=== PATIENT | female | born 1950 | race Caucasian/White ===

== ENCOUNTER 2018-07-02 08:29 | Emergency (ER) | END 2018-07-02 11:05 | disposition home or self-care (01) ==

== ENCOUNTER 2019-01-12 18:07 | Emergency (ER) | payer OTHER ==
[~2019-01-12] VITALS: Ht 157.5 cm; Wt 69.9 kg
[~2019-01-12 18:07] MED LIST: DOCU-144 PO; NITR-58 PO; POLY17PO6 PO
[2019-01-12 18:23] VITALS: Ht 157.5 cm; Wt 69.9 kg
[2019-01-12] MEDS ORDERED: LIDOCAINE/MYLANTA 40 ML BTL PO STA (20:16)
[2019-01-12] MEDS ORDERED: FAMOTIDINE 20 MG INJ IV STA (20:16)
[2019-01-12] MEDS ORDERED: DICYCLOMINE 10 MG CAP PO ONE (20:30)
[2019-01-12] MEDS ORDERED: FAMO-96 PO (21:05)
--- NOTE | 2019-01-12 21:25 | ERD ---
ER Documentation Chief Complaint Chief Complaint PT REPORTS LLQ PAIN RADIATING TO BACK WITH FREQUENT URINATION HPI 68-year-old female who presents to the emergency room complaining of epigastric abdominal pain. She describes several weeks if not longer of epigastric abdominal discomfort. Patient states that is always postprandial usually with fried or fatty foods. The patient also describes approximately 1 week of dysuria and possible frequent urination. No fevers or chills, no left flank pain, right flank pain. She denies any cough or shortness of breath. Symptoms are moderate currently. ROS All systems reviewed and are negative except as per history of present illness. Medications Home Meds Active Scripts Famotidine* (Pepcid*) 20 Mg Tablet, 20 MG PO BID for 4 Days, TAB Prov:KOTA SOTELO MD 01/12/19 Polyethylene Glycol* (Miralax*) 17 Gm Powd.pack, 17 GM PO DAILY, #7 Prov:TED ESPARZA MD 07/02/18 Docusate Sodium* (Colace*) 100 Mg Capsule, 100 MG PO BID, #60 CAP Prov:TED ESPARZA MD 07/02/18 Nitrofurantoin Monohyd Macrocr* (Macrobid*) 100 Mg Capsr, 100 MG PO BID for 7 Days, CAP Prov:FAYE CASTAÑEDA PA-C 03/14/16 Allergies Allergies: Coded Allergies: No Known Allergies (Verified Allergy, Unknown, 07/02/18) PMhx/Soc History of Surgery: Yes (HYSTERECTOMY ) Anesthesia Reaction: No Hx Neurological Disorder: No Hx Respiratory Disorders: No Hx Cardiac Disorders: No Hx Psychiatric Problems: Yes (DEPRESSION ) Hx Miscellaneous Medical Probl: No Hx Alcohol Use: No Hx Substance Use: No Hx Tobacco Use: No Smoking Status: Never smoker FmHx Family History: No diabetes Physical Exam Vitals Vital Signs Date Temp Pulse Resp B/P (MAP) Pulse Ox O2 O2 Flow FiO2 Time Delivery Rate 01/12/19 64 17 155/85 97 Room Air 21:03 (108) 01/12/19 98.6 84 16 155/74 100 18:23 (101) Physical Exam General: Well developed, well nourished, no acute distress Head: Normocephalic, atraumatic. Eyes: Pupils equally reactive, EOM intact ENT: Moist mucous membranes Neck: Supple, no lymphadenopathy Respiratory: Lungs clear bilaterally, no distress Cardiovascular: RRR, no murmurs, rubs, or gallops Abdominal: Soft, non-tender, non-distended, no peritoneal signs, negative Anderson sign Back: No CVAT bilaterally : Deferred MSK: No edema, no unilateral swelling, 5/5 strength Neurologic: Alert and oriented, moving all extremities, normal speech, no focal weakness, no cerebellar signs Skin: No rash Psych: Normal mood Result Diagram: 01/12/19201401/12/192014 Results 24 hrs Laboratory Tests Test 01/12/19 20:15 01/12/19 20:24 White Blood Count 10.3 10^3/ul Red Blood Count 4.58 10^6/ul Hemoglobin 13.0 g/dl Hematocrit 39.3 % Mean Corpuscular Volume 85.8 fl Mean Corpuscular Hemoglobin 28.4 pg Mean Corpuscular Hemoglobin Concent 33.1 g/dl Red Cell Distribution Width 12.4 % Platelet Count 309 10^3/UL Mean Platelet Volume 9.9 fl Immature Granulocytes % 0.300 % Neutrophils % 56.9 % Lymphocytes % 33.7 % Monocytes % 5.9 % Eosinophils % 2.7 % Basophils % 0.5 % Nucleated Red Blood Cells % 0.0 /100WBC Immature Granulocytes # 0.030 10^3/ul Neutrophils # 5.9 10^3/ul Lymphocytes # 3.5 10^3/ul Monocytes # 0.6 10^3/ul Eosinophils # 0.3 10^3/ul Basophils # 0.1 10^3/ul Nucleated Red Blood Cells # 0.0 10^3/ul Urine Color YELLOW Urine Clarity SLIGHTLY CLOUDY Urine pH 5.0 Urine Specific [place] 1.010 Urine Ketones NEGATIVE mg/dL Urine Nitrite NEGATIVE mg/dL Urine Bilirubin NEGATIVE mg/dL Urine Urobilinogen NEGATIVE mg/dL Urine Leukocyte Esterase 1+ Kaiden/ul Urine Microscopic RBC 0 /HPF Urine Microscopic WBC 2 /HPF Urine Mucus FEW /HPF Urine Hemoglobin NEGATIVE mg/dL Urine Glucose NEGATIVE mg/dL Urine Total Protein NEGATIVE mg/dl Sodium Level 139 mmol/L Potassium Level 3.9 mmol/L Chloride Level 106 mmol/L Carbon Dioxide Level 25 mmol/L Anion Gap 8 Blood Urea Nitrogen 14 mg/dl Creatinine 0.61 mg/dl Est Glomerular Filtrat Rate mL/min > 60 mL/min Glucose Level 93 mg/dl Calcium Level 9.6 mg/dl Total Bilirubin 0.4 mg/dl Direct Bilirubin 0.00 mg/dl Indirect Bilirubin 0.4 mg/dl Aspartate Amino Transf (AST/SGOT) 36 IU/L Alanine Aminotransferase (ALT/SGPT) 25 IU/L Alkaline Phosphatase 85 IU/L Troponin I < 0.012 ng/ml Total Protein 8.2 g/dl Albumin 4.4 g/dl Globulin 3.80 g/dl Albumin/Globulin Ratio 1.15 Lipase 121 U/L Bedside Urine pH (LAB) 5.5 Bedside Urine Protein (LAB) Negative Bedside Urine Glucose (UA) Negative Bedside Urine Ketones (LAB) Negative Bedside Urine Blood Trace-lysed Bedside Urine Nitrite (LAB) Negative Bedside Urine Leukocyte Esterase (L 1+ Current Medications Medications Dose Sig/Sarah Start Time Status Last (Trade) Ordered Route PRN Stop Time Admin Dose Reason Admin Famotidine 20 mg ONCE STAT 01/12/19 DC 01/12/19 (Pepcid Iv) IV 20:16 20:20 01/12/19 20:17 40 ml ONCE STAT 01/12/19 DC 01/12/19 Miscellaneous PO 20:16 20:21 Medication 01/12/19 20:17 (Gi Cocktail (2)) Dicyclomine 10 mg ONCE ONCE 01/12/19 DC 01/12/19 HCl PO 20:30 20:20 (Bentyl) 01/12/19 20:31 Procedures/MDM EKG, MONITORS, & DIAGNOSTIC IMAGING: EKG: I reviewed and interpreted a 12-lead EKG. Rhythm: Normal sinus rhythm ST Changes: No contiguous ST segment elevations T waves: No contiguous T wave inversions Impression: No evidence of acute cardiac ischemia LAB INTERPRETATION: I reviewed the laboratory testing and it shows no evidence of acute process MEDICAL DECISION MAKING: Patient presents with a multitude of complaints of her subacute timeframe. Her epigastric abdominal discomfort seems to be consistent with likely dyspepsia versus peptic ulcer disease versus GERD. Low concern for acute cholecystitis, cholelithiasis or biliary colic. No indication for ultrasound or CT imaging at this time given benign abdominal examination. Unclear etiology of the patient's dysuria. The patient could have potentially have a UTI. No signs of pyelonephritis. Symptoms are again subacute. Patient has epigastric discomfort, no exertional symptoms, very low clinical concern for cardiac et iology though EKG and troponin would be appropriate. ER COURSE: * Patient given a GI cocktail with dramatic improvement of symptomatology. Laboratory testing and diagnostic imaging is unrevealing. * Urinalysis not consistent with UTI. Urine culture is been sent. No indication at this time for empiric antibiotics given the risks outweigh the benefits. * Patient can be safely discharged and was advised to follow-up with gastroenterology for endoscopy. CONSULTATION: None DISPOSITION PLAN: The patient does not have an identifiable emergent medical condition that warrants inpatient hospitalization at this time. The patient is deemed safe for discharge with outpatient follow-up. We discussed follow up with the patient's primary care doctor within 24 to 48 hours as needed. We also discussed return to the emergency room for worsening symptoms or worsening condition. Outpatient referral: Gastroenterology Discharge Medications: Pepcid Departure Diagnosis: Primary Impression: Epigastric abdominal pain Additional Impressions: Dyspepsia Dysuria Condition: Stable Patient Instructions: Epigastric Pain (Uncertain Cause) Referrals: KENY ARGUELLO MD [facility] YOU HAVE RECEIVED A MEDICAL SCREENING EXAM AND THE RESULTS INDICATE THAT YOU DO NOT HAVE A CONDITION THAT REQUIRES URGENT TREATMENT IN THE EMERGENCY DEPARTMENT. FURTHER EVALUATION AND TREATMENT OF YOUR CONDITION CAN WAIT UNTIL YOU ARE SEEN IN YOUR DOCTORS OFFICE WITHIN THE NEXT 1-2 DAYS. IT IS YOUR RESPONSIBILITY TO MAKE AN APPOINTMENT FOR FOLOW-UP CARE. IF YOU HAVE A PRIMARY DOCTOR --you should call your primary doctor and schedule an appointment IF YOU DO NOT HAVE A PRIMARY DOCTOR YOU CAN CALL OUR PHYSICIAN REFERRAL HOTLINE AT IF YOU CAN NOT AFFORD TO SEE A PHYSICIAN YOU CAN CHOSE FROM THE FOLLOWING [facility] CLINICS [facility] [address] [facility] [address] [facility] [address] [facility]. [facility] [address] [facility]. [facility] [address] [facility]. [facility]. [address] [facility] YOU HAVE RECEIVED A MEDICAL SCREENING EXAM AND THE RESULTS INDICATE THAT YOU DO NOT HAVE A CONDITION THAT REQUIRES URGENT TREATMENT IN THE EMERGENCY DEPARTMENT. FURTHER EVALUATION AND TREATMENT OF YOUR CONDITION CAN WAIT UNTIL YOU ARE SEEN IN YOUR DOCTORS OFFICE WITHIN THE NEXT 1-2 DAYS. IT IS YOUR RESPONSIBILITY TO MAKE AN APPOINTMENT FOR FOLOW-UP CARE. IF YOU HAVE A PRIMARY DOCTOR --you should call your primary doctor and schedule and appointment IF YOU DO NOT HAVE A PRIMARY DOCTOR YOU CAN CALL OUR PHYSICIAN REFERRAL HOTLINE AT . IF YOU CAN NOT AFFORD TO SEE A PHYSICIAN YOU CAN CHOSE FROM THE FOLLOWING [facility] INSTITUTIONS: [facility] [address] [place] [address] [facility] [address] [place] [address] [facility] [address] [place] [address] Additional Instructions: Call your primary care doctor TOMORROW for an appointment during the next 1 WEEK.Tell the dental secretary that you were referred from this facility.See the doctor sooner or return here if your condition worsens before your appointment time. KOTA SOTELO MD Jan 12, 2019 21:25
[2019-01-12 21:37] VITALS: BP 155/85; PULSE 65; RESP 15
== END 2019-01-12 21:45 | disposition home or self-care (01) ==
LOC: E/R 18:07
DX: R10.13 Epigastric pain (principal); R30.0 Dysuria
CPT/HCPCS: 36415; 80053; 81001; 81003; 83690; 84484; 85025; 87086; 93005; 96374

== ENCOUNTER 2019-01-19 19:28 | Emergency (ER) | payer OTHER ==
[~2019-01-19] VITALS: Ht 154.9 cm; Wt 70.5 kg
[~2019-01-19 19:28] MED LIST changes: +FAMO-96 PO
[2019-01-19 19:31] VITALS: Ht 154.9 cm; Wt 70.5 kg
[2019-01-19] MEDS ORDERED: ONDANSETRON 4 MG INJ IV STA (19:56)
[2019-01-19] MEDS ORDERED: morphine 4 MG/ML VIAL IV STA (19:56)
[2019-01-19] MEDS ORDERED: CEPH-443 PO (23:02)
[2019-01-19] MEDS ORDERED: IBUP-1542 PO (23:02)
[2019-01-19] MEDS ORDERED: DOCU-144 PO (23:02)
--- NOTE | 2019-01-19 23:04 | ERD ---
ER Documentation Chief Complaint Chief Complaint lower AP w/ nausea, dysuria x1 day. no diarrhea/vomiting HPI Patient is a 68-year-old female with no medical problems who presents with abdominal pain. The patient has left upper quadrant abdominal pain which comes and goes. She feels like her abdomen is "swollen". She said that she has a burning type pain. She was seen on January 12 and had labs done at that time but no imaging was done. Upon review of old medical records this is the patient's fourth visit to the ER since 2016. She does not currently have a primary doctor. ROS All systems reviewed and are negative except as per history of present illness. Medications Home Meds Active Scripts Docusate Sodium* (Colace*) 100 Mg Capsule, 100 MG PO TID, #30 CAP Prov:RIC HOLCOMB MD 01/19/19 Ibuprofen* (Motrin*) 600 Mg Tab, 600 MG PO Q6H PRN for PAIN AND OR ELEVATED TEMP, #30 TAB Prov:RIC HOLCOMB MD 01/19/19 Cephalexin* (Keflex*) 500 Mg Capsule, 500 MG PO QID for 7 Days, CAP Prov:RIC HOLCOMB MD 01/19/19 Famotidine* (Pepcid*) 20 Mg Tablet, 20 MG PO BID for 4 Days, TAB Prov:KOTA SOTELO MD 01/12/19 Polyethylene Glycol* (Miralax*) 17 Gm Powd.pack, 17 GM PO DAILY, #7 Prov:TED ESPARZA MD 07/02/18 Docusate Sodium* (Colace*) 100 Mg Capsule, 100 MG PO BID, #60 CAP Prov:TED ESPARZA MD 07/02/18 Nitrofurantoin Monohyd Macrocr* (Macrobid*) 100 Mg Capsr, 100 MG PO BID for 7 Days, CAP Prov:FAYE CASTAÑEDA PA-C 03/14/16 Allergies Allergies: Coded Allergies: No Known Allergies (Verified Allergy, Unknown, 07/02/18) PMhx/Soc History of Surgery: Yes (HYSTERECTOMY ) Anesthesia Reaction: No Hx Neurological Disorder: No Hx Respiratory Disorders: No Hx Cardiac Disorders: No Hx Psychiatric Problems: Yes (DEPRESSION ) Hx Miscellaneous Medical Probl: No Hx Alcohol Use: No Hx Substance Use: No Hx Tobacco Use: No Smoking Status: Never smoker FmHx Family History: No diabetes Physical Exam Vitals Vital Signs Date Temp Pulse Resp B/P (MAP) Pulse Ox O2 O2 Flow FiO2 Time Delivery Rate 01/19/19 97.1 85 16 153/78 97 19:47 (103) 01/19/19 97.1 77 16 153/78 97 19:31 (103) Physical Exam Const: No acute distress Head: Atraumatic Eyes: Normal Conjunctiva ENT: Normal External Ears, Nose and Mouth. Neck: Full range of motion. No meningismus. Resp: Clear to auscultation bilaterally Cardio: Regular rate and rhythm, no murmurs Abd: Upper abdominal tenderness to palpation without rebound or guarding Skin: No petechiae or rashes Back: No midline or flank tenderness Ext: No cyanosis, or edema Neur: Awake and alert Psych: Normal Mood and Affect Result Diagram: 01/19/19199901/19/191999 Results 24 hrs Laboratory Tests Test 01/19/19 20:00 White Blood Count 9.1 10^3/ul Red Blood Count 4.47 10^6/ul Hemoglobin 12.8 g/dl Hematocrit 38.4 % Mean Corpuscular Volume 85.9 fl Mean Corpuscular Hemoglobin 28.6 pg Mean Corpuscular Hemoglobin Concent 33.3 g/dl Red Cell Distribution Width 12.4 % Platelet Count 333 10^3/UL Mean Platelet Volume 10.0 fl Immature Granulocytes % 0.200 % Neutrophils % 54.7 % Lymphocytes % 35.2 % Monocytes % 7.0 % Eosinophils % 2.5 % Basophils % 0.4 % Nucleated Red Blood Cells % 0.0 /100WBC Immature Granulocytes # 0.020 10^3/ul Neutrophils # 5.0 10^3/ul Lymphocytes # 3.2 10^3/ul Monocytes # 0.6 10^3/ul Eosinophils # 0.2 10^3/ul Basophils # 0.0 10^3/ul Nucleated Red Blood Cells # 0.0 10^3/ul Urine Color HEATHER Urine Clarity CLOUDY Urine pH 5.0 Urine Specific [place] 1.015 Urine Ketones NEGATIVE mg/dL Urine Nitrite NEGATIVE mg/dL Urine Bilirubin NEGATIVE mg/dL Urine Urobilinogen NEGATIVE mg/dL Urine Leukocyte Esterase TRACE Kaiden/ul Urine Microscopic RBC 1 /HPF Urine Microscopic WBC 2 /HPF Urine Hemoglobin NEGATIVE mg/dL Urine Glucose NEGATIVE mg/dL Urine Total Protein NEGATIVE mg/dl Sodium Level 141 mmol/L Potassium Level 4.3 mmol/L Chloride Level 105 mmol/L Carbon Dioxide Level 24 mmol/L Anion Gap 12 Blood Urea Nitrogen 13 mg/dl Creatinine 0.69 mg/dl Est Glomerular Filtrat Rate mL/min > 60 mL/min Glucose Level 110 mg/dl Calcium Level 9.7 mg/dl Total Bilirubin 0.3 mg/dl Direct Bilirubin 0.00 mg/dl Indirect Bilirubin 0.3 mg/dl Aspartate Amino Transf (AST/SGOT) 38 IU/L Alanine Aminotransferase (ALT/SGPT) 33 IU/L Alkaline Phosphatase 83 IU/L Troponin I < 0.012 ng/ml Total Protein 7.7 g/dl Albumin 4.4 g/dl Globulin 3.30 g/dl Albumin/Globulin Ratio 1.33 Lipase 119 U/L Current Medications Medications Dose Sig/Sarah Start Time Status Last (Trade) Ordered Route PRN Stop Time Admin Dose Reason Admin Morphine 4 mg ONCE STAT 01/19/19 DC 01/19/19 Sulfate IV 19:56 20:06 (morphine) 01/19/19 19:57 Ondansetron 4 mg ONCE STAT 01/19/19 DC 01/19/19 HCl (Zofran IV 19:56 20:06 Inj) 01/19/19 19:57 Procedures/MDM EKG read by me: Rate/Rhythm: Regular rate and rhythm at a rate of 67 Intervals: Normal Impression: No evidence of ischemia or arrhythmia CT abdomen and pelvis read by radiology. Patient is a 68-year-old female with no medical problems who presents with abdominal pain. Laboratory studies are normal. EKG is normal. Troponin is negative. LFTs and lipase are normal. CT scan shows dysmotility but no signs of bowel obstruction. I doubt appendicitis, cholecystitis, pancreatitis, or bowel obstruction. I did offer the patient admission to the hospital but she refused and would prefer to go home at this time. She was called for a E. coli infection from a few days ago with less than 10,000 colonies. She wants a prescription for this although we discussed that this possibly was not enough to consider true infection. I believe is reasonable to treat her with Keflex twice a day for 1 week and I will prescribe this. The patient will be given a prescr iption for ibuprofen and Colace as well. She should follow-up with her primary doctor at the local clinics within 24 to 48 hours. She can return sooner for any worsening symptoms. Departure Diagnosis: Primary Impression: Abdominal pain Abdominal location: left upper quadrant Qualified Codes: R10.12 - Left upper quadrant pain Additional Impression: Urinary tract infection Urinary tract infection type: acute cystitis Hematuria presence: without hematuria Qualified Codes: N30.00 - Acute cystitis without hematuria Condition: Fair Patient Instructions: Abdominal Pain, Understanding Urinary Tract Infections (UTIs) Referrals: Your doctor [facility] Additional Instructions: Call your primary care doctor TOMORROW for an appointment during the next 1-2 days.See the doctor sooner or return here if your condition worsens before your appointment time. RIC HOLCOMB MD Jan 19, 2019 23:04
[2019-01-19 23:14] VITALS: BP 144/81; PULSE 81; RESP 16
== END 2019-01-19 23:15 | disposition home or self-care (01) ==
LOC: E/R 19:28
DX: N30.00 Acute cystitis without hematuria (principal)
CPT/HCPCS: 36415; 74176; 80053; 81001; 83690; 84484; 85025; 93005; 96374; 96375; 99285; J2270; J2405